=== PATIENT | female | born 1980 | race Caucasian/White ===

== ENCOUNTER 2019-03-26 13:55 | Emergency (ER) | payer OTHER ==
[2019-03-26 14:06] VITALS: BP 105/57; PULSE 66; TEMP 98.4; BMI 25.0
--- NOTE | 2019-03-26 14:59 | PDOC ---
History of Present Illness - General Chief Complaint: Pain, Acute Stated Complaint: LT. LEG PAIN Time Seen by Provider: 03/26/19 14:08 - History of Present Illness Initial Comments: 03/26/19 14:51 38 -year-old female with a past medical history of asthma presents for evaluation of left knee pain. She states she injured her knee while at the gym trying to perform a split. She points to the medial aspect of her left knee as the area of her discomfort. Past History - Past Medical History Allergies/Adverse Reactions: Allergies Allergy/AdvReac Type Severity Reaction Status Date / Time No Known Allergies Allergy Verified 03/26/19 14:06 Asthma: Yes COPD: No - Suicide/Smoking/Psychosocial Hx Smoking History: Current every day smoker Number of Cigarettes Smoked Daily: 10 Information on smoking cessation initiated: No Hx Alcohol Use: No Drug/Substance Use Hx: No Review of Systems - Review of Systems Musculoskeletal: Yes: Joint Pain *Physical Exam - Vital Signs Last Vital Signs Temp Pulse Resp BP Pulse Ox 98.4 F 66 16 105/57 L 97 03/26/19 14:03 03/26/19 14:03 03/26/19 14:03 03/26/19 14:03 03/26/19 14:03 - Physical Exam Comments: 03/26/19 14:51 Left Knee skin color and temperature are normal. There is no palpable effusion. Range of motion is full and nonpainful. No lateral joint line tenderness. + MJLT No patellofemoral crepitation. No evidence of instability. Thigh and calf are soft and nontender. There are no gross sensory motor deficits. Extensor mechanism is intact. ED Treatment Course - RADIOLOGY Radiology Studies Ordered: Category Date Time Status KNEE 3 POS-LEFT [RAD] Stat Radiology 03/26/19 14:49 Ordered Medical Decision Making - Medical Decision Making 03/26/19 14:53 x-rays is left knee show no evidence of fracture trauma or destructive process. This is most likely medial meniscal tear. Weight-bear as tolerated with crutches follow-up with orthopedic surgery discussed use of Tylenol and Motrin for pain. *DC/Admit/Observation/Transfer Diagnosis at time of Disposition: Strain of left knee - Discharge Dispostion Disposition: HOME Condition at time of disposition: Stable Decision to Admit order: No - Referrals Referrals: Kunz,Juan Carlos A, DO [Staff Physician] - - Patient Instructions Additional Instructions: You may take Tylenol and Motrin as directed as per the instructions on the box. This will help with pain and fever You may weight-bear as tolerated with the use of crutches follow-up with orthopedic surgery without fail in 1-2 days for further evaluation and treatment options. - Post Discharge Activity
== END 2019-03-26 15:21 | disposition home or self-care (01) ==
LOC: JERFT 13:55
DX: S86.812A Strain of other muscle(s) and tendon(s) at lower leg level, left leg, initial encounter (principal); X50.0XXA Overexertion from strenuous movement or load, initial encounter; Y93.B9 Activity, other involving muscle strengthening exercises; Y92.39 Other specified sports and athletic area as the place of occurrence of the external cause; Y99.8 Other external cause status
CPT/HCPCS: 73562-TC-LT-FY; 99282-25

== ENCOUNTER 2020-04-04 23:16 | Emergency (ER) | payer OTHER ==
[2020-04-04 23:34] VITALS: BP 124/70; TEMP 98.2; BMI 26.6
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
[2020-04-05] MEDS ORDERED: ACETAMINOPHEN 325 MG TABLET (FP) PO ONE (00:44)
[2020-04-05] MEDS ORDERED: ACETAMINOPHEN 325 MG TABLET (FP) ONE (00:47)
[2020-04-05] MEDS ORDERED: BACITRACIN 15 GM TUBE TOPICAL OINTMENT TP ONE (00:53)
[2020-04-05] MEDS ORDERED: DIPHTH,PERTUSS(ACELL),TET 0.5 ML DISP.SYRIN IM ONE ×3 (00:55→01:21)
[2020-04-05] MEDS ORDERED: BACITRACIN 0.9 GM PACKET ONE (00:57)
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
[2020-04-05 01:48] LABS: EPI CELLS 7 /uL (0-25.1); HYALINE CASTS 1 /uL (0-3.1); PH,URINE 6.5 (5.0-8.0); URINE APPEARANCE CLEAR; URINE BACTERIA 12 /uL (0-1359); URINE BILIRUBIN NEGATIVE (NEGATIVE); URINE COLOR YELLOW; URINE GLUCOSE (UA) NEGATIVE (NEGATIVE); URINE KETONE TRACE (NEGATIVE); URINE LEUK ESTERASE NEGATIVE (NEGATIVE); URINE NITRITE NEGATIVE (NEGATIVE); URINE PROTEIN NEGATIVE (NEGATIVE); URINE RBC 105 /uL (0-23.9); URINE WBC 2 /uL (0-25.8)
[2020-04-05] MEDS ORDERED: BACITRACIN 15 GM TUBE TOPICAL OINTMENT ONE (02:52)
[2020-04-05 02:58] VITALS: PULSE 60
== END 2020-04-05 02:58 | disposition home or self-care (01) ==
LOC: JER 23:16
PROC: 3E0234Z Introduction of Serum, Toxoid and Vaccine into Muscle, Percutaneous Approach (ICD-10-PCS; principal; 2020-04-04)
DX: R51 Headache (principal); R42 Dizziness and giddiness
CPT/HCPCS: 70450-TC; 70486-TC; 72125-TC; 81003; 84703; 90715; 99285-25

== ENCOUNTER 2023-10-30 16:34 | Emergency (ER) | payer OTHER ==
[2023-10-30 16:45] VITALS: BMI 28.6
[2023-10-30] MEDS ORDERED: FAMOTIDINE 20 MG/50 ML IVPB 20 MG/50 ML MG IVPB ONE (17:30)
[2023-10-30] MEDS: FAMOTIDINE 20 MG/50 ML IVPB 20 MG/50 ML MG IVPB ONE (17:43)
[2023-10-30] MEDS: SODIUM CHLORIDE 0.9% 500 ML INFUS.BAG IV ONE (17:43)
[2023-10-30 17:44] LABS: BASO % 0.4 % (0-2.0); HEMOGLOBIN 13.5 GM/dL (10.7-15.3); LYMPH % 29.1 % (8-40); MCH 29.2 pg (25.7-33.7); MCHC 33.7 g/dl (32.0-36.0); MEAN CELL VOLUME 86.5 fl (80-96); MEAN PLT VOLUME 7.3 fl (7.5-11.1); MONO % 10.2 % (3.8-10.2); NEUT % 56.3 % (42.8-82.8); PLATELET COUNT 276 10^3/uL (134-434); RBC 4.62 M/mm3 (3.60-5.2); RDW 13.8 % (11.6-15.6); WHITE BLOOD COUNT 7.7 K/mm3 (4.0-10.0)
[2023-10-30 17:45] LABS: EPI CELLS 5 /uL (0-25.1); HYALINE CASTS 0 /uL (0-3.1); PH,URINE 6.5 (5.0-8.0); URINE APPEARANCE CLEAR; URINE BACTERIA 11 /uL (0-1359); URINE BILIRUBIN NEGATIVE (NEGATIVE); URINE COLOR YELLOW; URINE GLUCOSE (UA) NEGATIVE (NEGATIVE); URINE KETONE NEGATIVE (NEGATIVE); URINE LEUK ESTERASE NEGATIVE (NEGATIVE); URINE NITRITE NEGATIVE (NEGATIVE); URINE PROTEIN NEGATIVE (NEGATIVE); URINE RBC 300 /uL (0-23.9); URINE UROBILINOGEN 0.2 mg/dL (0.2-1.0); URINE WBC 6 /uL (0-25.8)
[2023-10-30 17:48] LABS: HCG,QUALITATIVE URINE Negative
[2023-10-30 18:10] LABS: POTASSIUM 3.9 mmol/L (3.5-5.1)
[2023-10-30 18:12] LABS: CALCIUM 9.1 mg/dL (8.5-10.1)
[2023-10-30 18:13] LABS: ALBUMIN 3.6 g/dl (3.4-5.0)
[2023-10-30 18:16] LABS: CREATININE 0.8 mg/dL (0.55-1.3)
[2023-10-30 18:17] LABS: BILIRUBIN,TOTAL 0.2 mg/dL (0.2-1)
[2023-10-30 18:18] LABS: TOT PROT 6.9 g/dl (6.4-8.2)
[2023-10-30 19:46] LABS: THROAT:GRP A STREP NOT DETECTED (NOTDETECTED)
[2023-10-30 20:18] VITALS: BP 120/67; PULSE 68; RESP 16; TEMP 97.9
== END 2023-10-30 20:59 | disposition home or self-care (01) ==
LOC: JER 16:34
PROC: 3E033GC Introduction of Other Therapeutic Substance into Peripheral Vein, Percutaneous Approach (ICD-10-PCS; principal; 2023-10-30)
DX: R10.12 Left upper quadrant pain (principal); R10.13 Epigastric pain; J02.9 Acute pharyngitis, unspecified; R19.7 Diarrhea, unspecified; A08.4 Viral intestinal infection, unspecified; Z20.822 Contact with and (suspected) exposure to COVID-19
CPT/HCPCS: 0241U-QW; 36415; 80053; 81003; 83690; 84703; 85025; 87086; 87651; 99284-25